=== PATIENT | male | born 1955 | race Caucasian/White ===

== ENCOUNTER 2016-09-06 10:44 | Emergency (ER) | payer OTHER ==
[~2016-09-06] VITALS: Ht 188 cm; Wt 108.0 kg
[~2016-09-06 10:44] MED LIST: BUPR150T3 PO; CIPR500T4 PO; CLON0.3T PO; IBUP800T23 PO; ISOP1SOL EACH EYE; LATA.005%O EACH EYE; LISI-360 PO; LORTA5 PO; OMEP20TA PO; TAMS0.4C4 PO; TIMO0.255 OU; TRUS2SOL EACH EAR
[2016-09-06 10:55] VITALS: BP 118/68; PULSE 58; RESP 17; TEMP 97.8; O2SAT 97
[2016-09-06] MEDS ORDERED: METR-1 PO ×2 (11:12)
[2016-09-06] MEDS ORDERED: WELLTAB39 PO (11:12)
[2016-09-06] MEDS ORDERED: CLON0.3T PO (11:12)
[2016-09-06] MEDS ORDERED: LISI40TA PO (11:12)
[2016-09-06] MEDS ORDERED: TAMS0.4C4 PO (11:12)
[2016-09-06] MEDS ORDERED: LATA.005%O RIGHT EYE (11:13)
[2016-09-06] MEDS ORDERED: BRIM.15%O RIGHT EYE (11:13)
[2016-09-06] MEDS ORDERED: TIMO0.5S30 RIGHT EYE (11:13)
[2016-09-06] MEDS ORDERED: SODIUM CHLOR 0.9% 1000 ML INJ 1,000 ML IV SCH ×2 (11:21→12:27)
[2016-09-06 11:22] VITALS: RESP 17; O2SAT 99
[2016-09-06] MEDS ORDERED: CIPROFLOXACIN 200 MG PREMIX 100 ML IV ONE (11:30)
[2016-09-06] MEDS ORDERED: metroNIDAZOLE 500 MG INJ 100 ML IV ONE (11:30)
[2016-09-06] MEDS ORDERED: MORPHINE SULFATE 4 MG/ML INJ IV PUSH ONE (11:30)
[2016-09-06] MEDS ORDERED: ONDANSETRON HCL 4 MG/2 ML VIAL IVP ONE (11:30)
--- NOTE | 2016-09-06 11:42 | PD ---
HPI Chief Complaint: Abdominal Pain Time Seen by Provider: 11:38 Travel History International Travel<30 days: No Contact w/Intl Traveler<30days: No Traveled to known affect area: No History of Present Illness HPI 60-year-old male that presents to the ED for evaluation of left lower quadrant abdominal pain that he's had since Monday as well as episode of hypotension and dizziness. Per patient she's had left lower quadrant pain since Monday. Patient was seen at [facility] on Monday and had a CAT scan and lab work that was positive for an episode of diverticulitis. Patient was started on Flagyl and Cipro and was released. Patient was seen by his PCP yesterday and he was started on Colace. Patient has been taking his medications for 2 days and has been doing well except for today where he states that he had an episode where he felt hypotensive and he was like about to pass out. He denies any chest pain. Per patient the pain on his left lower quadrant has not improved but is "on the edge of worsening ". He has no GI doctor. He denies any history of diverticulitis in the past. He denies any bloody stools. Per patient he was constipated for about 3 days and today he had a normal bowel movement. He denies any loss of consciousness but states that he felt very dizzy and hypotensive as well as had a slight headache. Patient states that currently his pain is 6 out of 10. Patient contacted his doctor who recommended that he comes here to get evaluated. He has no allergies to medication. No other medical issues. PFSH Past Medical History Hx Anticoagulant Therapy: No Cancer: Yes (PROSTATE CANCER, HAIRY CELL LEUKEMIA) Cardiovascular Problems: Yes Diabetes: No Diminished Hearing: No Glaucoma: Yes Hepatitis: No Hiatal Hernia: No Hypertension: Yes Psychiatric: Yes Respiratory: Yes (DYSPNEA ON EXERTION) Sleep Apnea: Yes (SUPPOSED TO WEAR CPAP AT NIGHT) Thyroid Disease: No Tetanus Vaccination: < 5 Years Influenza Vaccination: Yes Past Surgical History Eye Surgery: Yes (BILATERAL LASER SURGERY FOR GLAUCOMA) Hysterectomy: Yes Pacemaker: No Other Surgery: Yes (REATTACHED L PECTORIS MUSCLE) Social History Alcohol Use: Yes (SOCIAL) Tobacco Use: No Substance Use: No Allergies-Medications (Allergen,Severity, Reaction): Coded Allergies: No Known Allergies (Verified , 04/13/12) Reported Meds & Prescriptions Reported Meds & Active Scripts Active Lortab (Hydrocodone-Acetaminophen) 5-325 Mg Tab 1 Tab PO Q6H PRN Reported Alphagan P Opth Drops (Brimonidine Tartrate) 0.15% Soln 1 Drop RIGHT EYE DAILY Timolol Opth Drops 0.5 % Soln 1 Drop RIGHT EYE DAILY Xalatan Opth Drops (Latanoprost) 0.005% Drops 1 Drop RIGHT EYE HS Flagyl (Metronidazole) 500 Mg Tab 500 Mg PO BID Flagyl (Metronidazole) 500 Mg Tab 500 Mg PO TID Wellbutrin Xl 24 HR (Bupropion HCl) 300 Mg Tab 300 Mg PO HS Clonidine (Clonidine HCl) 0.3 Mg Tab 0.3 Mg PO HS Lisinopril 40 Mg Tab 40 Mg PO HS Tamsulosin (Tamsulosin HCl) 0.4 Mg Cap 0.4 Mg PO HS Review of Systems Except as stated in HPI: all other systems reviewed are Neg Physical Exam Narrative GENERAL: SKIN: Warm and dry. HEAD: Atraumatic. Normocephalic. EYES: Pupils equal and round 4 mm reactive to light and accommodation. No scleral icterus. No injection or drainage. ENT: No nasal bleeding or discharge. Mucous membranes pink and moist. Tongue is midline. No uvula deviation. NECK: Trachea midline. No JVD. CARDIOVASCULAR: Regular rate and rhythm. RESPIRATORY: No accessory muscle use. Clear to auscultation. Breath sounds equal bilaterally. GASTROINTESTINAL: Abdomen soft, very tender to palpation on the left lower quadrant especially with deep palpation, nondistended. Hepatic and splenic margins not palpable. MUSCULOSKELETAL: Extremities without clubbing, cyanosis, or edema. No obvious deformities. Full range of motion of the upper and lower extremities bilaterally. 2+ pulses bilaterally. NEUROLOGICAL: Awake and alert. No obvious cranial nerve deficits. Motor grossly within normal limits. Five out of 5 muscle strength in the arms and legs. Normal speech. PSYCHIATRIC: Appropriate mood and affect; insight and judgment normal. Data Data Last Documented VS Vital Signs Date Time Temp Pulse Resp B/P Pulse Ox O2 Delivery O2 Flow Rate FiO2 09/06/16 13:00 97.8 52 16 141/71 99 Room Air Orders Complete Blood Count With Diff (09/06/16 11:21) Comprehensive Metabolic Panel (09/06/16 11:21) Lipase (09/06/16 11:21) Lactic Acid (09/06/16 11:21) Prothrombin Time / Inr (Pt) (09/06/16 11:21) Act Partial Throm Time (Ptt) (09/06/16 11:21) Urinalysis - C+S If Indicated (09/06/16 11:21) Ct Abd/Pel W Iv Contrast(Rout) (09/06/16 11:21) Iv Access Insert/Monitor (09/06/16 11:21) Ecg Monitoring (09/06/16 11:21) Oximetry (09/06/16 11:21) Morphine Inj (Morphine Inj) (09/06/16 11:30) Ondansetron Inj (Zofran Inj) (09/06/16 11:30) Sodium Chlor 0.9% 1000 Ml Inj (Ns 1000 M (09/06/16 11:21) Ciprofloxacin 200 Mg Premix (Cipro 200 M (09/06/16 11:30) Metronidazole 500 Mg Inj (Flagyl 500 Mg (09/06/16 11:30) Blood Culture (09/06/16 11:31) Sodium Chlor 0.9% 1000 Ml Inj (Ns 1000 M (09/06/16 12:27) Labs Laboratory Tests Test 09/06/16 09/06/16 11:30 12:00 White Blood Count 5.4 TH/MM3 Red Blood Count 5.15 MIL/MM3 Hemoglobin 15.7 GM/DL Hematocrit 45.8 % Mean Corpuscular Volume 88.9 FL Mean Corpuscular Hemoglobin 30.4 PG Mean Corpuscular Hemoglobin 34.2 % Concent Red Cell Distribution Width 13.2 % Platelet Count 122 TH/MM3 Mean Platelet Volume 8.4 FL Neutrophils (%) (Auto) 77.2 % Lymphocytes (%) (Auto) 12.7 % Monocytes (%) (Auto) 9.0 % Eosinophils (%) (Auto) 0.9 % Basophils (%) (Auto) 0.2 % Neutrophils # (Auto) 4.1 TH/MM3 Lymphocytes # (Auto) 0.7 TH/MM3 Monocytes # (Auto) 0.5 TH/MM3 Eosinophils # (Auto) 0.0 TH/MM3 Basophils # (Auto) 0.0 TH/MM3 CBC Comment DIFF FINAL Differential Comment Prothrombin Time 10.8 SEC Prothromb Time International 1.0 RATIO Ratio Activated Partial 30.8 SEC Thromboplast Time Sodium Level 138 MEQ/L Potassium Level 4.3 MEQ/L Chloride Level 105 MEQ/L Carbon Dioxide Level 28.0 MEQ/L Anion Gap 5 MEQ/L Blood Urea Nitrogen 20 MG/DL Creatinine 1.25 MG/DL Estimat Glomerular Filtration 59 ML/MIN Rate Random Glucose 120 MG/DL Lactic Acid Level 0.8 mmol/L Calcium Level 8.8 MG/DL Total Bilirubin 2.0 MG/DL Aspartate Amino Transf 21 U/L (AST/SGOT) Alanine Aminotransferase 39 U/L (ALT/SGPT) Alkaline Phosphatase 98 U/L Total Protein 7.1 GM/DL Albumin 3.9 GM/DL Lipase 114 U/L Urine Color YELLOW Urine Turbidity CLEAR Urine pH 6.5 Urine Specific [place] 1.018 Urine Protein NEG mg/dL Urine Glucose (UA) NEG mg/dL Urine Ketones NEG mg/dL Urine Occult Blood NEG Urine Nitrite NEG Urine Bilirubin NEG Urine Urobilinogen LESS THAN 2.0 MG/DL Urine Leukocyte Esterase NEG Urine RBC 1 /hpf Urine WBC 1 /hpf Urine Squamous Epithelial <1 /hpf Cells Microscopic Urinalysis Comment CULT NOT INDICATED MDM Medical Decision Making Medical Screen Exam Complete: Yes Emergency Medical Condition: Yes Medical Record Reviewed: Yes Interpretation(s) CBC & BMP Diagram 09/06/16 11:30 CT abdomen shows mild diverticulitis, nodule to pancreas and punctate kidney stone right kidney Differential Diagnosis Diverticulitis versus perforation versus vasovagal episode versus dehydration versus sepsis Narrative Course 60-year-old male that presents to the ED for evaluation of possible worsening diverticulitis. Patient was properly examined and was found to have signs and symptoms of unclear etiology at this time. Patient does have a history of diverticulitis and been treated for it. There is some concern for sepsis versus dehydration versus worsening infection. At this time I recommend labs. I spoke with patient's PCP Dr. Green who agrees with this plan. Labs and imaging here were essentially unremarkable other than for osteomyelitis. No sign of other acute disease. Patient was reassured. Case was discussed in my attending Dr. Tobin who went in and evaluated the patient. This time I believe the patient will likely benefit from some pain management. Patient was given Lortab for pain as he takes nothing for pain at this time. I gave him a note for work for the next 2 days. I recommend oral hydration. Close follow- up with PCP and GI specialist as needed. See ED for worsening symptoms. ALL questions were answered to the best of our ability. Patient was told of the nodule on his pancreas to follow-up outpatient. Diagnosis Primary Impression: Diverticulitis large intestine w/o perforation or abscess w/o bleeding Patient Instructions: General Instructions, Narcotic given in the ED Departure Forms: Tests/Procedures, Work Release Enter return to work date: September 09, 2016 Additional Instructions: Continue taking antiemetics as prescribed. Follow with her primary care doctor. See ED for worsening symptoms. Take pain medication as needed. Drink plenty of fluids. Med/Other Pt SpecificInfo: Prescription(s) given Scripts Hydrocodone-Acetaminophen (Lortab)5-325 Mg Tab1 Tab PO Q6H PRN (PAIN) #20 TAB Prov:Fredrick Tobin MD 09/06/16 Disposition: 01 DISCHARGE HOME Condition: Stable Buster Gasca September 06, 2016 11:42
[2016-09-06 11:52] LABS: AUTOMATED NEUTROPHIL # 4.1 TH/MM3 (1.8-7.7); BASOPHIL % 0.2 % (0.0-2.0); EOSINOPHIL % 0.9 % (0.0-4.0); HEMATOCRIT 45.8 % (39.0-51.0); HEMO FLAGS DIFF FINAL; LYMPH % 12.7 % (9.0-44.0); LYMPHOCYTE # 0.7 TH/MM3 (1.0-4.8); MEAN CELL VOLUME 88.9 FL (80.0-100.0); MEAN CORPUSCULAR HEMOGLOBIN 30.4 PG (27.0-34.0); MEAN CORPUSCULAR HGB CONC 34.2 % (32.0-36.0); NEUT % 77.2 % (16.0-70.0); PLATELET COUNT 122 TH/MM3 (150-450); RED BLOOD COUNT 5.15 MIL/MM3 (4.50-5.90); RED CELL DISTRIBUTION WIDTH 13.2 % (11.6-17.2); WHITE BLOOD COUNT 5.4 TH/MM3 (4.0-11.0)
[2016-09-06 11:58] VITALS: BP 125/62; PULSE 67; RESP 17; TEMP 98.1; O2SAT 99
[2016-09-06 12:03] LABS: APTT (PATIENT) 30.8 SEC (24.3-30.1); PROTHROMBIN TIME - PATIENT 10.8 SEC (9.8-11.6)
[2016-09-06 12:09] LABS: ANION GAP 5 MEQ/L (5-15); AST (GOT) 21 U/L (15-37); BLOOD UREA NITROGEN 20 MG/DL (7-18); CHLORIDE 105 MEQ/L (98-107); GLOMERULAR FILTRATION RATE 59 ML/MIN (>89); POTASSIUM 4.3 MEQ/L (3.5-5.1); SODIUM (NA) 138 MEQ/L (136-145)
[2016-09-06 12:12] LABS: ALKALINE PHOSPHATASE 98 U/L (45-117); ALT (GPT) 39 U/L (12-78)
[2016-09-06] MEDS ORDERED: IOHEXOL 350 MG/ML 10 ML VIAL (for RAD DIAG) IV ONE (12:38)
[2016-09-06 12:58] LABS: BLOOD, URINE NEG (NEG); COMMENT (UR) CULT NOT INDICATED; CULTURE IF INDICATED CULT NOT INDICATED; GLUCOSE,URINE NEG (NEG); KETONE, URINE NEG (NEG); NITRITE,URINE NEG (NEG); PH, URINE 6.5 (5.0-8.5); SQUAMOUS EPITHELIAL CELL URINE <1 /hpf (0-5); URINE COLOR YELLOW (YELLW/STRAW)
[2016-09-06 13:00] VITALS: BP 141/71; PULSE 52; RESP 16; TEMP 97.8; O2SAT 99
--- NOTE | 2016-09-06 13:35 | RADRPT ---
EXAM DATE/TIME: 09/06/2016 12:38 [facility] COMPARISON: No previous studies available for comparison. INDICATIONS : Left lower quadrant pain. IV CONTRAST: 70 cc Omnipaque 350 (iohexol) IV ORAL CONTRAST: No oral contrast ingested. RADIATION DOSE: 17.89 CTDIvol (mGy) MEDICAL HISTORY : Leukemia. Carcinoma, prostate. Renal calculi. SURGICAL HISTORY : None. ENCOUNTER: Initial ACUITY: 4 - 6 days PAIN SCALE: 6/10 LOCATION: Left lower quadrant TECHNIQUE: Volumetric scanning of the abdomen and pelvis was performed. Using automated exposure control and ad justment of the mA and/or kV according to patient size, radiation dose was kept as low as reasonably achievable to obtain optimal diagnostic quality images. FINDINGS: LOWER LUNGS: The visualized lower lungs are clear. LIVER: Decreased attenuation without lesion. There is no dilation of the biliary tree. No calcified gallst ones. SPLEEN: Normal size without lesion. PANCREAS: Within normal limits. KIDNEYS: Normal in size and shape. There is no mass or hydronephrosis. Bilateral renal cysts. Punctate nonobs tructing right renal calculus. ADRENAL GLANDS: Within normal limits. VASCULAR: There is no aortic aneurysm. BOWEL/MESENTERY: Mild degree of diverticulitis involving the distal descending colon. No perforation. No abscess.. Th ere is no free intraperitoneal air or fluid. ABDOMINAL WALL: Within normal limits. RETROPERITONEUM: There is no lymphadenopathy. BLADDER: No wall thickening or mass. REPRODUCTIVE: Within normal limits. INGUINAL: There is no lymphadenopathy or hernia. MUSCULOSKELETAL: Within normal limits for patient age. CONCLUSION: 1. Mild degree of diverticulitis involving the descending colon. 2. Mild hepatic steatosis. Small nodule along the splenic hilum and intimately associated with the pa ncreatic tail could be a splenule versus less likely pancreatic mass. 3. Bilateral renal cysts. 4. Punctate nonobstructing right renal calculus. Harvey Martinez MD on September 06, 2016 at 13:28 Board Certified Radiologist. This report was verified electronically.
[2016-09-06] MEDS ORDERED: HYDR-3533 PO (13:46)
[2016-09-06 13:53] VITALS: BP 130/78; TEMP 97.8
== END 2016-09-06 13:53 | disposition home or self-care (01) ==
LOC: NEPE 10:44
DX: K57.32 Diverticulitis of large intestine without perforation or abscess without bleeding (principal); R10.32 Left lower quadrant pain; R42 Dizziness and giddiness; R51 Headache; I10 Essential (primary) hypertension; G47.30 Sleep apnea, unspecified; Z85.46 Personal history of malignant neoplasm of prostate
CPT/HCPCS: 74177; 80053; 81001; 83605; 83690; 85025; 85610; 85730; 87040; 96361; 96374; 96375; 99285; J2270; J2405; J7030; Q9967

== ENCOUNTER → 2017-05-17 | Outpatient (CLI) | payer OTHER ==
[~2017-05-17] VITALS: Ht 188 cm; Wt 108.1 kg
[~2017-05-17] MED LIST changes: +BRIM.15%O RIGHT EYE; -BUPR150T3 PO; +CHLORHEXIDINE GLUCONATE 2 % 1 PACK (2 CLOTHS) TOPICAL PRN; -CIPR500T4 PO; +HYDR-3533 PO; -IBUP800T23 PO; -ISOP1SOL EACH EYE; +LACTATED RINGER'S 1000 ML INJ 1,000 ML IV ONE; +LACTATED RINGER'S 1000 ML IV PRN; -LATA.005%O EACH EYE; +LATA.005%O RIGHT EYE; +LEXA10TA PO; +LIDOCAINE HCL 1% PF 5 ML SYRINGE OTHER ONE; -LISI-360 PO; +LISI40TA PO; -LORTA5 PO; +METOPROLOL TARTRATE 25 MG TAB PO PRN; +METR-1 PO; -OMEP20TA PO; +OMEP20TA93 PO; +POVIDONE IODINE 5% (ANTISEPSIS KIT) 4 APPLICATIONS EACH NARE PRN; +PROPOFOL 200 MG/20 ML AMP IV ONE; +SODIUM CHLORID 0.9% 500 ML IV PRN; -TIMO0.255 OU; +TIMO0.5S30 RIGHT EYE; -TRUS2SOL EACH EAR; +WELLTAB39 PO
--- NOTE | 2017-05-17 11:38 | EKG ---
Date Performed: 05/17/2017 Time Performed: 10:58:33 PTAGE: 61 years EKG: SINUS BRADYCARDIA MODERATE INTRAVENTRICULAR CONDUCTION DELAY MODERATE VOLTAGE CRITERIA FOR LVH, CONSIDER NORMAL VARIANT BORDERLINE ECG PREVIOUS TRACING : 12/21/2011 12.55 Since the prior tracing, there has been no significant [place] DOCTOR: Aaron Vazquez Interpretating Date/Time 05/17/2017 11:37:07
--- NOTE | 2017-05-17 13:21 | GIPROC ---
[facility] [address] [facility]. [facility], [address] EGD PROCEDURE REPORT EXAM DATE: 05/17/2017 PATIENT NAME: Rishi Vergara MR #: [id number] BIRTHDATE: 1955 ATTENDING: Juan Allred MD ORDER #: [id number] GENERAL EDUCATION INSTRUCTOR: Mohamud Ott and Elena Fine STATUS: outpatient INDICATIONS: The patient is a 61 yr old male here for an EGD due to heartburn/dysphagia; both have resolved since starting omeprazole, 20mg/day. PROCEDURE PERFORMED: EGD, diagnostic MEDICATIONS: Per Anesthesia. TOPICAL ANESTHETIC: none CONSENT: The patient understands the risks and benefits of the procedure and understands that these risks include, but are not limited to: sedation, allergic reaction, infection, perforation and/or bleeding. Alternative means of evaluation and treatment include, among others: physical exam, x-rays, and/or surgical intervention. The patient elects to proceed with this endoscopic procedure. medical equipment was checked for proper function. Hand hygiene and appropriate measures for infection prevention was taken. After the risks, benefits and alternatives of the procedure were thoroughly explained, Informed consent was verified, confirmed and timeout was successfully executed by the treatment team. The patient was anesthetized with topical anesthesia and the Pentax EG-[id number] and [id number] (Pedi C) endoscope was introduced through the mouth and advanced to the second portion of the duodenum. Retroflexion was performed and was normal The gastroscope was then slowly withdrawn and removed. The endoscopy was normal. ADVERSE EVENTS: There were no complications. IMPRESSIONS: NL exam: no stricture or esophagitis or Parra's mucosa noted. RECOMMENDATIONS: Continue full anti-reflux regimen and omeprazole daily or every other day. PATIENT CONDITION: stable DISPOSITION: Home REPEAT EXAM: NONE Juan Allred MD eSigned: Juan Allred MD 05/17/2017 1:20 PM cc: Allen Solitario M.D.
--- NOTE | 2017-05-17 13:27 | GIPROC ---
[facility] [address] [facility]. [facility], [address] COLONOSCOPY PROCEDURE REPORT EXAM DATE: 05/17/2017 PATIENT NAME: Rishi Vergara MR #: [id number] BIRTHDATE: 1955 ENDOSCOPIST: Juan Allred MD ORDER #: [id number] PLUMBER HELPER: Mohamud Ott and Elena Fine STATUS: outpatient INDICATIONS: The patient is a 61 yr old male here for a colonoscopy due to screening; average risk. PROCEDURE PERFORMED: Colonoscopy with biopsy MEDICATIONS: Per Anesthesia. PREP QUALITY: good ESTIMATED BLOOD LOSS: None CONSENT: The patient understands the risks and benefits of the procedure and understands that these risks include, but are not limited to: sedation, allergic reaction, infection, perforation and/or bleeding. Alternative means of evaluation and treatment include, among others: physical exam, x-rays, and/or surgical intervention. The patient elects to proceed with this endoscopic procedure. medical equipment was checked for proper function. Hand hygiene and appropriate measures for infection prevention was taken. After the risks, benefits and alternatives of the procedure were thoroughly explained, Informed consent was verified, confirmed and timeout was successfully executed by the treatment team. A digital exam was performed and revealed no abnormalities of the rectum The endoscope was introduced through the anus and advanced to the cecum, which was identified by both the appendix and ileocecal valve. The instrument was then slowly withdrawn as the colon was fully examined. COLON FINDINGS: Mild diverticulosis was noted in the sigmoid colon and descending colon. A smooth flat polyp measuring 2 mm in size was found in the rectum. A polypectomy was performed. The resection was complete and the polyp tissue was completely retrieved. The scope was then completely withdrawn from the patient and the procedure terminated. ADVERSE EVENTS: There were no complications. IMPRESSIONS: 1. Mild diverticulosis was noted in the sigmoid colon and descending colon 2. A flat polyp measuring 2 mm in size was found in the rectum; polypectomy was performed 3. Was performed 4. Revealed no abnormalities of the rectum RECOMMENDATIONS: 1. Await biopsy results. Biopsy results will not be ready for 7-10 days. If you don't hear from us in two weeks, call our office for results. 2. High fiber diet RECALL: Depending on pathology report: 5 years of ten years. Juan Allred MD eSigned: Juan Allred MD 05/17/2017 1:27 PM cc: Allen Solitario M.D. PATIENT NAME: Rishi Vergara MR#: [id number]
[2017-05-17 14:06] VITALS: BP 128/74; PULSE 52; RESP 16; O2SAT 99
== END ==
LOC: HEND 10:39
DX: Z12.11 Encounter for screening for malignant neoplasm of colon (principal); K57.30 Diverticulosis of large intestine without perforation or abscess without bleeding; D12.8 Benign neoplasm of rectum; K21.9 Gastro-esophageal reflux disease without esophagitis; R13.10 Dysphagia, unspecified; I10 Essential (primary) hypertension; Z85.46 Personal history of malignant neoplasm of prostate
CPT/HCPCS: 00813; 43235; 45380; 88305; 93005; J7120

== ENCOUNTER → 2017-09-13 | Outpatient (CLI) | payer OTHER ==
[~2017-09-13] MED LIST changes: -CHLORHEXIDINE GLUCONATE 2 % 1 PACK (2 CLOTHS) TOPICAL PRN; -HYDR-3533 PO; -LACTATED RINGER'S 1000 ML INJ 1,000 ML IV ONE; -LACTATED RINGER'S 1000 ML IV PRN; -LIDOCAINE HCL 1% PF 5 ML SYRINGE OTHER ONE; -METOPROLOL TARTRATE 25 MG TAB PO PRN; -METR-1 PO; -POVIDONE IODINE 5% (ANTISEPSIS KIT) 4 APPLICATIONS EACH NARE PRN; -PROPOFOL 200 MG/20 ML AMP IV ONE; -SODIUM CHLORID 0.9% 500 ML IV PRN
[2017-09-13 09:57] LABS: AUTOMATED NEUTROPHIL # 4.6 TH/MM3 (1.8-7.7); BASOPHIL % 0.2 % (0.0-2.0); EOSINOPHIL # 0.1 TH/MM3 (0-0.4); EOSINOPHIL % 1.5 % (0.0-4.0); HEMATOCRIT 45.8 % (39.0-51.0); LYMPH % 17.6 % (9.0-44.0); LYMPHOCYTE # 1.1 TH/MM3 (1.0-4.8); MEAN CELL VOLUME 89.4 FL (80.0-100.0); MEAN CORPUSCULAR HEMOGLOBIN 31.2 PG (27.0-34.0); MEAN CORPUSCULAR HGB CONC 34.9 % (32.0-36.0); MEAN PLATELET VOLUME 7.7 FL (7.0-11.0); MONO % 8.1 % (0.0-8.0); MONOCYTE # 0.5 TH/MM3 (0-0.9); NEUT % 72.6 % (16.0-70.0); PLATELET COUNT 177 TH/MM3 (150-450); RED BLOOD COUNT 5.13 MIL/MM3 (4.50-5.90); RED CELL DISTRIBUTION WIDTH 12.6 % (11.6-17.2); WHITE BLOOD COUNT 6.3 TH/MM3 (4.0-11.0)
[2017-09-13 10:04] LABS: BILIRUBIN, URINE NEG (NEG); BLOOD, URINE NEG (NEG); GLUCOSE,URINE NEG (NEG); HYALINE CAST, URINE 5 /lpf (RARE); KETONE, URINE NEG (NEG); MUCUS URINE FEW /lpf (OCC); NITRITE,URINE NEG (NEG); PH, URINE 5.5 (5.0-8.5); URINE COLOR YELLOW (YELLW/STRAW); URINE LEUKOCYTE ESTERASE NEG (NEG)
[2017-09-13 10:46] LABS: ALKALINE PHOSPHATASE 89 U/L (45-117); ALT (GPT) 40 U/L (12-78); HDL CHOLESTEROL 38.4 MG/DL (40.0-60.0); TOTAL BILIRUBIN ADULT 1.4 MG/DL (0.2-1.0); TOTAL PROTEIN 7.2 GM/DL (6.4-8.2)
[2017-09-13 10:57] LABS: AST (GOT) 29 U/L (15-37); BICARBONATE 28.8 MEQ/L (21.0-32.0); BLOOD UREA NITROGEN 17 MG/DL (7-18); CALCIUM 9.1 MG/DL (8.5-10.1); CHLORIDE 108 MEQ/L (98-107); CHOLESTEROL 233 MG/DL (120-200); CHOLESTEROL/ HDL RATIO 6.06 RATIO; CREATININE 1.11 MG/DL (0.60-1.30); GLOMERULAR FILTRATION RATE 68 ML/MIN (>89); GLUCOSE,FASTING 111 MG/DL (74-99); LDL CHOLESTEROL 172 MG/DL (0-99); SODIUM (NA) 144 MEQ/L (136-145); TRIGLYCERIDES 112 MG/DL (42-150)
[2017-09-13 17:09] LABS: HEMOGLOBIN A1C 5.1 % (4.3-6.0)
== END ==
LOC: CLAB 09:31
PROVIDERS: ATTEND Family Medicine
DX: Z00.00 Encounter for general adult medical examination without abnormal findings (principal)
CPT/HCPCS: 36415; 80053; 80061; 81001; 83036; 84153; 84443; 85025